=== PATIENT | female | born 1985 | race African-American/Black ===

== ENCOUNTER 2016-11-13 06:55 | Day surgery (SDC) | payer OTHER ==
[2016-11-10 12:18] VITALS: BMI 21.7
[2016-11-13] MEDS ORDERED: MIDAZOLAM HCL 2 MG/2 ML SINGLE DOSE VIAL ONE (07:37)
[2016-11-13] MEDS ORDERED: SUCCINYLCHOLINE CHLORIDE 200 MG/10 ML VIAL ONE (07:37)
[2016-11-13] MEDS ORDERED: PROPOFOL 20 ML ONE ×2 (07:37)
[2016-11-13] MEDS ORDERED: DEXAMETHASONE SOD PHOSPHATE 4 MG/1 ML VIAL ONE (07:40)
[2016-11-13] MEDS ORDERED: LEVOFLOXACIN 500 MG IVPB 100 ML IVPB ONE (07:40)
[2016-11-13] MEDS ORDERED: LIDOCAINE HCL/PF 2% SDV 5ML VIAL ONE ×2 (07:40→09:20)
[2016-11-13] MEDS ORDERED: LEVOFLOXACIN 500 MG PREMIX BAG IVPB ONE (08:23)
--- NOTE | 2016-11-13 09:01 | OP ---
Operative Note - Note: Operative Date: 11/13/16 Pre-Operative Diagnosis: neoplasm of bladder Operation: cystoscopy and bladder biopsy Findings: erythematous lesions on bladder base Post-Operative Diagnosis: Same as Pre-op Surgeon: Herminio Leon Anesthesia: General Specimens Removed: bladder biopsy Operative Report Dictated: Yes
[2016-11-13] MEDS ORDERED: PROMETHAZINE HCL 25 MG/1 ML VIAL IVPUSH PRN (09:22)
[2016-11-13] MEDS ORDERED: ONDANSETRON 4 MG/2 ML VIAL IVPUSH PRN (09:22)
[2016-11-13] MEDS ORDERED: oxyCODONE HCL 5 MG TABLET PO PRN (09:22)
[2016-11-13] MEDS ORDERED: LACTATED RINGERS SOLUTION 1,000 ML IV SCH (09:30)
[2016-11-13 09:57] VITALS: TEMP 97.6
--- NOTE | 2016-11-13 10:33 | OP ---
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 POSTOPERATIVE DIAGNOSIS: Neoplasm of bladder of uncertain behavior. PROCEDURE: Cystoscopy and bladder biopsy. ATTENDING: Denny Bonilla MD ANESTHESIA: General. DESCRIPTION OF PROCEDURE: The patient was brought in the operating room and placed in a supine position on the operating room table. General anesthesia and intravenous Levaquin were administered preoperatively for surgical prophylaxis. At this point, the patient was placed in a dorsal lithotomy position and prepped and draped in the usual sterile manner. Cystoscopy was performed, and small, velvety, reddish lesions were noted on the bladder base. Biopsies of these lesions were performed with a cold cup biopsy forceps. Electrocauterization was performed utilizing a loop. No complications were noted. The patient tolerated the procedure well. The patient was left without a Sheth catheter. DISPOSITION: To the recovery room. DENNY BONILLA M.D. [id number]
[2016-11-13 12:08] VITALS: BP 130/80; PULSE 81
--- NOTE | 2016-11-14 12:44 | PATH ---
Surgical Pathology Report Patient Name: RILEY TALAMANTES [facility]. Rec. #: [id number] /Age/Gender: 1985 (Age: 31) / F Account: [id number] Location: [facility] SURGICAL Taken: 11/13/2016 Received: 11/13/2016 Reported: 11/14/2016 Physicians: Herminio Leon Specimen(s) Received BLADDER BIOPSY Clinical History Neoplasm of uncertain behavior of bladder Final Diagnosis BLADDER, BIOPSY: PARTIALLY DENUDED FRAGMENTS OF UROTHELIAL MUCOSA WITH CHRONIC INFLAMMATION. NO CARCINOMA IDENTIFIED IN THE EXAMINED MATERIAL. Electronically Signed Emery Walters M.D. Gross Description Received in formalin, labeled "bladder biopsy" are 2 rod, irregular portions of soft tissue measuring 0.4 and 0.6 cm in greatest dimension. The specimens are submitted in toto in one cassette. 11/13/201611/13/2016
== END 2016-11-13 11:40 | disposition home or self-care (01) ==
LOC: JASU-SURG 06:55
PROVIDERS: ATTEND Urology
PROC: 0TBB8ZX Excision of Bladder, Via Natural or Artificial Opening Endoscopic, Diagnostic (ICD-10-PCS; principal; 2016-11-13 09:00)
DX: N30.90 Cystitis, unspecified without hematuria (principal)
CPT/HCPCS: 84703; 88305-TC; 94760